=== PATIENT | female | born 1990 | race Two or more races ===

== ENCOUNTER 2025-02-07 19:33 | Emergency (ER) | payer OTHER, SELFPAY ==
--- NOTE | 2025-02-07 19:43 | ED.GENADULT ---
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 changing about 3-4 pads a day Related Data Previous Rx's ?Medication ?Instructions ?Recorded cefuroxime axetil 250 mg tablet 250 mg PO BID 7 days #14 tabs 02/07/25 desogestrel 0.15 mg-ethinyl 1 tab PO DAILY #84 tabs 02/07/25 estradiol 0.03 mg tablet (Apri) Allergies Allergy/AdvReac Type Severity Reaction Status Date / Time Crustaceans Allergy Unknown UNKNOWN Uncoded 02/07/25 19:46 shrimp Allergy Unknown rash Uncoded 02/07/25 19:46 Review of Systems Review of Systems: Yes all other systems are reviewed and are negative PMFSH Social History Social History Smoked in Last 30 Days: Yes Use of substances other than those prescribed or required for medical reasons: No Advance Directives: No Advance Directives Information Provided: No Physical Exam ED Vital Signs: BMI result Body Mass Index 30.9 Appearance: Alert. Oriented X3. No acute distress. Eyes: no pallor or icterus ENT: Pharynx normal Oral Mucosa moist tympanic membrane intact no erythema, Neck: Normal inspection. Neck supple. CVS: Normal heart rate and rhythm. Pulses normal. Respiratory: No respiratory distress. Equal air entry bilateral, no wheezing/rales/rhonchi Abd: soft, not tender no CVA tenderness Skin: Skin warm and dry. Normal skin color. Normal skin turgor. Extremities: No lower extremity edema, no calf tenderness Neuro: Oriented X 3. Course Course Course Narrative: RME, this is a rapid medical exam performed by Judson Beckman please refer to primary provider for complete H&P- 34 year old female presents for evaluation of abnormal menstrual bleeding. She reports she has had her menstrual cycle for 9 days straight with blood clots which is very unusual for her. She denies any pelvic pain. She denies any recent stressors or contraception. Plan for labs. Medications Administered Discontinued Medications Generic Name Dose Route Start Last Admin Trade Name Freq PRN Reason Stop Dose Admin Cefuroxime Axetil 500 mg 02/07/25 22:39 02/07/25 22:48 Cefuroxime Axetil 500 Mg Tablet PO 02/07/25 22:40 500 mg ONCE ONE Administration Medical Decision Making Medical Decision Making [facility] Narrative: Patient has dysfunctional uterine bleed no history of DVT or breast cancer patient is educated about risks for having breast cancer and DVTs will prescribe low-dose APRI Lab Data [facility] Lab Attestation statement: I reviewed the patient's lab results. 02/07/25 19:52 02/07/25 19:52 Labs: Lab Results 02/07/25 02/07/25 Range/Units 19:52 22:03 WBC 7.5 (4.8-10.8) X10*3/uL RBC 4.22 (4.20-5.50) X10*6/uL Hgb 13.5 (12.0-16.0) g/dl Hct 38.1 (37.0-47.0) % MCV 90.3 (80.0-98.0) fL MCH 32.0 (27.0-33.0) pg MCHC 35.4 H (31.0-35.0) g/dl RDW 13.4 (11.0-16.0) % Plt Count 264 (160-400) X10*3/uL MPV 8.9 L (9.4-12.3) fL Immature Gran % (Auto) 0.1 (0.0-0.4) % Neut % (Auto) 58.5 (45-73) % Lymph % (Auto) 30.4 (20-40) % [place] % (Auto) 8.7 (2-11) % Eos % (Auto) 1.9 (0-4) % Baso % (Auto) 0.4 (0-2) % Lymph # (Auto) 2.3 (1.2-4.9) X10*3/uL [place] # (Auto) 0.7 (0.1-1.2) X10*3/uL Eos # (Auto) 0.1 (0.0-0.4) X10*3/uL Baso # (Auto) 0.0 (0.0-0.2) X10*3/uL Abs Immat Gran (auto) 0.01 (0.00-0.03) X10*3/uL Absolute Neuts (auto) 4.4 (2.0-8.3) x10*3/uL Absolute Nucleated RBC 0.000 (0.0-0.012) X10*3/uL Nucleated RBC % (auto) 0.0 (0.0-0.2) /100WBC Sodium 141 (135-145) mmol/L Potassium 4.4 (3.3-5.1) mmol/L Chloride 106 (96-108) mmol/L Carbon Dioxide 25 (22-29) mmol/L Anion Gap 14 (12-20) BUN 9 (9-16) mg/dL Creatinine 0.97 (0.5-1.4) mg/dL Estim Creat Clear Calc 65.0 Estimated GFR > 60 Random Glucose 92 (60-115) mg/dL Calcium 9.2 (8.4-10.2) mg/dL Total Bilirubin 0.3 (0.0-1.0) mg/dL AST 30 (5-31) U/L ALT 25 (0-31) U/L Alkaline Phosphatase 76 (39-117) U/L Total Protein 7.9 (6.5-8.0) g/dL Albumin 4.4 (3.5-5.0) g/dL Beta HCG, Quant < 2 mIU/mL Urine Color RED Urine Appearance Cloudy Urine pH 5.0 (5.0-9.0) Ur Specific [place] 1.025 (1.005-1.025) Urine Protein 300 (3+) H (Neg-Trace) mg/dL Urine Glucose (UA) Negative (Negative) mg/dL Urine Ketones 15 (Negative) mg/dL Urine Blood Large (3+) H (Negative) Urine Nitrite Positive H (Negative) Ur Leukocyte Esterase Small (1+) H (Negative) Urine RBC >20 H (0-2) /HPF Urine WBC 21-50 H (0-5) /HPF Ur Squamous Epith Cells 0-2 (0-2) /HPF Urine Bacteria 4+ (None Seen) Hyaline Casts 0-2 (0-2) /LPF Discharge Plan Discharge Clinical Impression: Urinary tract infection, DUB (dysfunctional uterine bleeding) Patient Disposition: Home, Self-Care Instructions: Abnormal (Dysfunctional) Uterine Bleeding (ED), Urinary Tract Infection in Women (DC) Additional Instructions: Drink plenty of fluid Take control pills daily as prescribed and follow up with Gynecology Antibiotic as prescribed Prescriptions: New cefuroxime axetil 250 mg tablet 250 mg PO BID 7 Days Qty: 14 0RF desogestrel-ethinyl estradiol [Apri] 0.15-0.03 mg tablet 1 tab PO DAILY Qty: 84 0RF Referrals: Segun Herron MD [Physician, [employer] [facility]] Referral Note: DUB Interventions: ED Discharge Assessment Last Done: 02/07/25 22:50 Discharge Date/Time: 02/07/25 22:51 Print Language: Cymraes
[2025-02-07 19:46] VITALS: BP 120/71; PULSE 110; RESP 16; TEMP 37; O2SAT 98; BMI 30.9
[2025-02-07 19:55] LABS: MANUAL DIFF FLAG NO
[2025-02-07 19:56] LABS: Hematocrit 38.1 % (37.0-47.0); Hemoglobin 13.5 g/dl (12.0-16.0); Imm Gran Abs Auto 0.01 X10*3/uL (0.00-0.03); Imm Gran Pct Auto 0.1 % (0.0-0.4); Lymphocytes Absolute Auto 2.3 X10*3/uL (1.2-4.9); Mean Corpuscular HGB Conc 35.4 g/dl (31.0-35.0); Mean Corpuscular Hemoglobin 32.0 pg (27.0-33.0); Mean Corpuscular Volume 90.3 fL (80.0-98.0); NRBC Abs Auto 0.000 X10*3/uL (0.0-0.012); NRBC Pct Auto 0.0 /100WBC (0.0-0.2); Platelet Count 264 X10*3/uL (160-400); Red Blood Count 4.22 X10*6/uL (4.20-5.50); White Blood Count 7.5 X10*3/uL (4.8-10.8)
[2025-02-07 20:20] LABS: Alanine Aminotransferase 25 U/L (0-31); Albumin Level 4.4 g/dL (3.5-5.0); Alkaline Phosphatase 76 U/L (39-117); Anion Gap 14 (12-20); Aspartate Amino Transferase 30 U/L (5-31); Blood Urea Nitrogen 9 mg/dL (9-16); Calcium 9.2 mg/dL (8.4-10.2); Carbon Dioxide 25 mmol/L (22-29); Chloride 106 mmol/L (96-108); Creatinine Clr Calc Pharmacy 65.0; Estimated Glomerular Filt Rate > 60; Potassium 4.4 mmol/L (3.3-5.1); Sodium 141 mmol/L (135-145); Total Protein 7.9 g/dL (6.5-8.0)
[2025-02-07 21:40] VITALS: BP 101/61; PULSE 85; RESP 20; TEMP 36.9; O2SAT 96
[2025-02-07 22:15] LABS: Appearance Urine Cloudy; Glucose Urine UA Negative (Negative); PH 5.0 (5.0-9.0); Specific Gravity - Urine 1.025 (1.005-1.025); UMIC TRIGGER UACC YES
[2025-02-07 22:25] LABS: UACC Culture Trigger YES
[2025-02-07 22:50] VITALS: BP 101/61; PULSE 85; RESP 20; TEMP 36.9; O2SAT 96
== END 2025-02-07 22:51 | disposition home or self-care (01) ==
PROVIDERS: Physician Assistant; Emergency Provider Internal Medicine
DX: N93.8 Other specified abnormal uterine and vaginal bleeding (principal); N39.0 Urinary tract infection, site not specified
CPT/HCPCS: 36415; 80053; 81001; 84702; 85025; 87086; 99283; 99284

== ENCOUNTER 2025-03-16 15:33 | Emergency (ER) | payer OTHER, SELFPAY ==
[2025-03-16 15:59] VITALS: BP 151/65; PULSE 85; RESP 18; TEMP 36.6; O2SAT 97; BMI 31.0
--- NOTE | 2025-03-16 16:01 | ED.GENADULT ---
HPI - General Adult General Chief complaint: Abdominal Pain Stated complaint: uterine discomfort Time Seen by Provider: 03/16/25 18:11 Source: patient and old records reviewed Mode of arrival: ambulatory Limitations: no limitations History of Present Illness ED Provider: ANIL BRAVO narrative: 34 yo female seen here in January for AUB has OCPs but does not take them. She comes in c/o 1 day of urination bothering her then feeling like she has to urinate but not much comes out. She notes she had a different period this month so she took one dose of the OCP but nothing else. She denies STI or concerns. She denies n/v/d, abd pain or back pain. MD complaint: urinary symptoms Onset (ago): day(s) (1) Location: pelvis Radiation: non-radiation Severity: mild Quality: dull Pain Consistency: intermittent Relieving factors: none Exacerbating factors: other (urination) Associated symptoms: denies other symptoms Treatments prior to arrival: none Related Data Previous Rx's ?Medication ?Instructions ?Recorded cefuroxime axetil 250 mg tablet 250 mg PO BID 7 days #14 tabs 02/07/25 desogestrel 0.15 mg-ethinyl 1 tab PO DAILY #84 tabs 02/07/25 estradiol 0.03 mg tablet (Apri) nitrofurantoin 100 mg PO Q12H 5 days #10 caps 03/16/25 monohydrate/macrocrystals 100 mg capsule (Macrobid) Allergies Allergy/AdvReac Type Severity Reaction Status Date / Time Crustaceans Allergy Unknown UNKNOWN Uncoded 03/16/25 16:02 shrimp Allergy Unknown rash Uncoded 03/16/25 16:02 Review of Systems Review of Systems: Constitutional : No Fever, No Chills, No Fatigue ENT/Mouth : No sore throat, No Rhinorrhea Eyes: No Eye Pain, No Swelling, No Redness Cardiovascular : No Chest Pain, No SOB, No Dyspnea on Exertion Respiratory : No Cough, No Sputum Gastrointestinal : No Nausea, No Vomiting, No Diarrhea, No abdominal Pain Genitourinary : pos Dysuria, pos Urinary Frequency, No Hematuria, Musculoskeletal : No joint pain, No Myalgias, No Joint Swelling Skin : No Skin Lesions, No rash Neuro : No Weakness, No Numbness, No Dizziness, no Headache All other systems reviewed and are negative REPLACED BY [facility] Past Medical History Attestation statement: The following information was validated with the patient. Source: old records reviewed Social History Social History (Updated 03/16/25 @ 18:35 by Carrie Dallas DO) Patient Tobacco Use Status: Tobacco use Unknown Physical Exam ED Vital Signs: Vital Signs - 24 hr 03/16/25 15:59 Temperature 97.9 F Pulse Rate 85 Respiratory Rate 18 Blood Pressure 151/65 H Pulse Oximetry 97 Oxygen Delivery Method Room Air BMI result Body Mass Index 31.0 Appearance: Alert. Oriented X3. No acute distress. Eyes: Pupils equal, round and reactive to light. ENT: Pharynx normal. Neck: Normal inspection. CVS: Pulses normal. Respiratory: No respiratory distress. Abdomen: Soft and nontender. actively eating a sandwhich and czech fries Skin: Skin warm and dry. Normal skin color. Extremities: No lower extremity edema. Neuro: Oriented X 3. No motor deficit. No sensory deficit. Course Course Course Narrative: This is a rapid medical exam performed by Harjeet Avalos NP: Additional HPI, ROS, PE not included below will be deferred to primary provider. Patient is a 34y/o F presenting with complaint of lower abdominal pain, dysuria, and vaginal bleeding with clots. States she already had her period, this bleeding is abnormal. Plan:labs, UA Medical Decision Making Medical Decision Making [facility] Narrative: 34 yo femal here with dysuria, frequency and discomfort when urinating. No fevers, no n/v, no back pain. She looks well and is eating a large meal on stretcher. She needs US likely but declines in ED will refer to PCP as she does not want pelvic US here - she is aware and states she will return if anything worsens. She denies STI risk. Differential Diagnosis Differential Diagnoses: The differential diagnosis associated with the presentation includes UTI, yeast infection Admission/Observation Consideration of admission/observation: Escalation of care including admission/observation considered labs reassuring, not toxic eating food does not want to wait for US plans to call PCP a Lab Data [facility] Lab Attestation statement: I reviewed the patient's lab results. 03/16/25 16:24 03/16/25 16:24 Labs: Lab Results 03/16/25 Range/Units 16:24 WBC 7.8 (4.8-10.8) X10*3/uL RBC 4.11 L (4.20-5.50) X10*6/uL Hgb 13.4 (12.0-16.0) g/dl Hct 37.9 (37.0-47.0) % MCV 92.2 (80.0-98.0) fL MCH 32.6 (27.0-33.0) pg MCHC 35.4 H (31.0-35.0) g/dl RDW 13.2 (11.0-16.0) % Plt Count 247 (160-400) X10*3/uL MPV 8.8 L (9.4-12.3) fL Immature Gran % (Auto) 0.1 (0.0-0.4) % Neut % (Auto) 65.6 (45-73) % Lymph % (Auto) 24.4 (20-40) % [place] % (Auto) 7.3 (2-11) % Eos % (Auto) 2.3 (0-4) % Baso % (Auto) 0.3 (0-2) % Lymph # (Auto) 1.9 (1.2-4.9) X10*3/uL [place] # (Auto) 0.6 (0.1-1.2) X10*3/uL Eos # (Auto) 0.2 (0.0-0.4) X10*3/uL Baso # (Auto) 0.0 (0.0-0.2) X10*3/uL Abs Immat Gran (auto) 0.01 (0.00-0.03) X10*3/uL Absolute Neuts (auto) 5.1 (2.0-8.3) x10*3/uL Absolute Nucleated RBC 0.000 (0.0-0.012) X10*3/uL Nucleated RBC % (auto) 0.0 (0.0-0.2) /100WBC Sodium 143 (135-145) mmol/L Potassium 4.0 (3.3-5.1) mmol/L Chloride 108 (96-108) mmol/L Carbon Dioxide 26 (22-29) mmol/L Anion Gap 13 (12-20) BUN 12 (9-16) mg/dL Creatinine 0.98 (0.5-1.4) mg/dL Estim Creat Clear Calc 67.3 Estimated GFR > 60 Random Glucose 85 (60-115) mg/dL Calcium 9.3 (8.4-10.2) mg/dL Total Bilirubin 0.2 (0.0-1.0) mg/dL AST 30 (5-31) U/L ALT 27 (0-31) U/L Alkaline Phosphatase 70 (39-117) U/L Total Protein 8.0 (6.5-8.0) g/dL Albumin 4.5 (3.5-5.0) g/dL Beta HCG, Quant < 2 mIU/mL Urine Color Yellow Urine Appearance Clear Urine pH 5.5 (5.0-9.0) Ur Specific [place] 1.025 (1.005-1.025) Urine Protein Negative (Neg-Trace) mg/dL Urine Glucose (UA) Negative (Negative) mg/dL Urine Ketones Trace (Negative) mg/dL Urine Blood Negative (Negative) Urine Nitrite Negative (Negative) Ur Leukocyte Esterase Trace H (Negative) Urine RBC 0-2 (0-2) /HPF Urine WBC 0-5 (0-5) /HPF Ur Squamous Epith Cells 6-10 (0-2) /HPF Urine Bacteria 3+ (None Seen) Hyaline Casts 0-2 (0-2) /LPF Independent Historian Clinical information obtained from an independent historian. History obtained from or confirmed by: Friend External Record Review External record reviewed: Outpatient record Prescription Management I considered prescription management with: Antibiotic Discharge Plan Discharge Clinical Impression: Cystitis Patient Disposition: Home, Self-Care Instructions: Pelvic Pain in Women (ED) Additional Instructions: your labs are reassuring control should be consistent not a one time dose here and there please follow up with your doctor and ask for an ultrasound of ovaries,uterus return for any worsening symptoms or concerns. Prescriptions: New nitrofurantoin monohyd/m-cryst [Macrobid] 100 mg capsule 100 mg PO Q12H 5 Days Qty: 10 0RF Rx Instructions: must administer with a meal/food No Action cefuroxime axetil 250 mg tablet 250 mg PO BID 7 Days Qty: 14 0RF desogestrel-ethinyl estradiol [Apri] 0.15-0.03 mg tablet 1 tab PO DAILY Qty: 84 0RF Print Language: Senegalese
[2025-03-16 16:30] LABS: MANUAL DIFF FLAG NO
[2025-03-16 16:31] LABS: Appearance Urine Clear; Glucose Urine UA Negative (Negative); Hematocrit 37.9 % (37.0-47.0); Hemoglobin 13.4 g/dl (12.0-16.0); Imm Gran Abs Auto 0.01 X10*3/uL (0.00-0.03); Imm Gran Pct Auto 0.1 % (0.0-0.4); Lymphocytes Absolute Auto 1.9 X10*3/uL (1.2-4.9); Mean Corpuscular HGB Conc 35.4 g/dl (31.0-35.0); Mean Corpuscular Hemoglobin 32.6 pg (27.0-33.0); Mean Corpuscular Volume 92.2 fL (80.0-98.0); NRBC Abs Auto 0.000 X10*3/uL (0.0-0.012); NRBC Pct Auto 0.0 /100WBC (0.0-0.2); PH 5.5 (5.0-9.0); Platelet Count 247 X10*3/uL (160-400); Red Blood Count 4.11 X10*6/uL (4.20-5.50); Specific Gravity - Urine 1.025 (1.005-1.025); UMIC TRIGGER UACC YES; White Blood Count 7.8 X10*3/uL (4.8-10.8)
[2025-03-16 16:56] LABS: Alanine Aminotransferase 27 U/L (0-31); Albumin Level 4.5 g/dL (3.5-5.0); Alkaline Phosphatase 70 U/L (39-117); Anion Gap 13 (12-20); Aspartate Amino Transferase 30 U/L (5-31); Blood Urea Nitrogen 12 mg/dL (9-16); Calcium 9.3 mg/dL (8.4-10.2); Carbon Dioxide 26 mmol/L (22-29); Chloride 108 mmol/L (96-108); Creatinine Clr Calc Pharmacy 67.3; Estimated Glomerular Filt Rate > 60; Potassium 4.0 mmol/L (3.3-5.1); Sodium 143 mmol/L (135-145); Total Protein 8.0 g/dL (6.5-8.0)
--- NOTE | 2025-03-16 18:18 | PC.NURSE ---
Went to introduce self to pt, pt sitting on stretcher eating [place] fries, appears in nad, awaiting provider for eval
== END 2025-03-16 18:40 | disposition home or self-care (01) ==
PROVIDERS: Registered Nurse Emergency; Emergency Provider Emergency Medicine
DX: N30.90 Cystitis, unspecified without hematuria (principal)
CPT/HCPCS: 36415; 80053; 81001; 84702; 85025; 99282; 99283

== ENCOUNTER 2025-03-20 01:02 | Emergency (ER) | payer OTHER, SELFPAY ==
--- NOTE | ~2025-03-20 | XR_ITS ---
CLINICAL HISTORY: pain --- Additional Notes or Special Instructions: ? foreign body in vagina 1 view pelvis Comparison: None provided Findings: No acute fracture or dislocation. No significant degenerative changes. No radiopaque foreign body identified. IMPRESSION: 1. No acute findings. No radiopaque foreign body identified. This document has been electronically signed by: Александр Rodriguez MD on 03/20/2025 01:53:41
[2025-03-20 01:12] VITALS: BP 155/69; PULSE 56; RESP 20; TEMP 36.4; O2SAT 99; BMI 30.7
--- NOTE | 2025-03-20 01:17 | ED.GENADULT ---
HPI - General Adult General Chief complaint: General Medical Stated complaint: Urogen Female Time Seen by Provider: 03/20/25 03:10 Source: patient, RN notes reviewed and old records reviewed Mode of arrival: ambulatory Limitations: no limitations History of Present Illness ED Provider: Dr. Dana Delatorre HPI narrative: Previously healthy 34-year-old female presenting with question of a vaginal foreign body. States that she was using ?a sex toy? when she may have fallen asleep. Afterwards, she can not recall if she found the toy or if ?it might still be inside of me?. The toilet is made out of metal and is a solid piece. There is no small parts to have lost in the vagina. Of note, she was recently diagnosed with a urinary tract infection and started on Macrobid which she has been taking as prescribed for the last 2 days. No reported fever. She does admit to some suprapubic abdominal pain but this has been unchanged for the last 2 days. No vaginal discharge. No bowel changes. Related Data Previous Rx's ?Medication ?Instructions ?Recorded cefuroxime axetil 250 mg tablet 250 mg PO BID 7 days #14 tabs 02/07/25 desogestrel 0.15 mg-ethinyl 1 tab PO DAILY #84 tabs 02/07/25 estradiol 0.03 mg tablet (Apri) nitrofurantoin 100 mg PO Q12H 5 days #10 caps 03/16/25 monohydrate/macrocrystals 100 mg capsule (Macrobid) Allergies Allergy/AdvReac Type Severity Reaction Status Date / Time Crustaceans Allergy Unknown UNKNOWN Uncoded 03/20/25 01:25 shrimp Allergy Unknown rash Uncoded 03/20/25 01:25 Review of Systems Review of Systems: As per HPI, full review of systems performed and negative but for the above mentioned pertinent positives and negatives. [facility] Social History Social History Patient Tobacco Use Status: Tobacco use Unknown Advance Directives: No Advance Directives Information Provided: Yes Do you have a plan to hurt others: No Plan Physical Exam ED Exam Exam: GENERAL: Well-Appearing, conversant, no acute distress. SKIN: Normal skin color for ethnicity, warm, dry, no rashes noted. HEENT: Normocephalic, atraumatic, no stridor, posterior oropharynx nonerythematous, dentition intact, EOMI. NECK: Soft, supple, full ROM, midline structures nontender, no step-offs, no deformities, no lymphadenopathy. CHEST: Heart regular rate and rhythm, no murmurs, symmetric chest rise and fall. PULMONARY: Clear to auscultation bilaterally, no labored breathing, no wheezes/rhales/rhonchi. ABDOMINAL: Soft, nondistended, nontender, positive bowel sounds in all quadrants. : Deferred. MUSCULOSKELETAL: Normal tone, full range of motion, no deformities, no peripheral edema. NEURO: Alert and oriented x3, CN II through XII intact, equal strength and sensation bilateral upper and lower extremities, no focal neurologic deficits. PSYCHIATRIC: Normal affect, fluid speech, good eye contact and appropriate demeanor. Vital Signs: Vital Signs - 24 hr 03/20/25 01:12 Temperature 97.6 F Pulse Rate 56 Respiratory Rate 20 Blood Pressure 155/69 H Pulse Oximetry 99 Oxygen Delivery Method Room Air BMI result Body Mass Index 30.7 Course Course Course Narrative: RME, this is a rapid medical exam performed by Judson Beckman please refer to primary provider for complete H&P- 34 year old female presents for evaluation of a foreign body in her vagina. She reports she thinks that a piece of a vibrator is stuck in her vagina. Plan for x-ray Medical Decision Making Medical Decision Making MDM Narrative: 34-year-old female presenting with a potential foreign body in the vagina. Differential diagnosis includes retained foreign body, UTI, suprapubic pain, STDs, among others. X-ray does not show evidence of radiopaque foreign body. She is refusing vaginal exam at this time. We had an extensive discussion regarding vaginal anatomy and the possibility of anything ?going high up into her abdomen?. She has been reassured. Using shared decision making, plan for discharge home to follow-up with primary care and/or specialist. Patient understands and agrees with plan for discharge. Discharged home in stable condition. Differential Diagnosis Differential Diagnoses: The differential diagnosis associated with the presentation includes (as above) Admission/Observation Consideration of admission/observation: Escalation of care including admission/observation considered Independent Historian Clinical information obtained from an independent historian. History obtained from or confirmed by: Spouse Discharge Plan Discharge Clinical Impression: Encounter for medical screening examination, Vaginal foreign body Patient Disposition: Home, Self-Care Instructions: Vaginal Foreign Body (ED) Additional Instructions: Continue to take your antibiotic as prescribed. Do not stop this medication early if you start to feel better. With the ER with any new or worsening symptoms including: Fevers, worsening pain in your vagina or abdomen, any new symptom that concerns you. Call 911 with any medical emergency. Prescriptions: No Action cefuroxime axetil 250 mg tablet 250 mg PO BID 7 Days Qty: 14 0RF desogestrel-ethinyl estradiol [Apri] 0.15-0.03 mg tablet 1 tab PO DAILY Qty: 84 0RF nitrofurantoin monohyd/m-cryst [Macrobid] 100 mg capsule 100 mg PO Q12H 5 Days Qty: 10 0RF Rx Instructions: must administer with a meal/food Print Language: Khmer
[2025-03-20 03:09] VITALS: BP 105/64; PULSE 82; RESP 20; TEMP 36.6; O2SAT 97
[2025-03-20 04:07] VITALS: BP 105/64; PULSE 82; RESP 20; TEMP 36.6; O2SAT 97
== END 2025-03-20 04:08 | disposition home or self-care (01) ==
PROVIDERS: Emergency Provider Emergency Medicine; PCP Internal Medicine
DX: T19.2XXA Foreign body in vulva and vagina, initial encounter (principal); W44.B3XA Plastic toy and toy part entering into or through a natural orifice, initial encounter; R10.2 Pelvic and perineal pain
CPT/HCPCS: 72170; 99283

== ENCOUNTER → 2025-03-20 01:18 | Outpatient (BNV) | payer OTHER, SELFPAY | PROVIDERS: Visit Provider Radiology Diagnostic Radiology | DX: R10.2 Pelvic and perineal pain (principal) | CPT/HCPCS: 72170 ==

== ENCOUNTER 2025-03-26 10:00 | Outpatient (REF) | payer OTHER, SELFPAY ==
[2025-03-26 11:14] LABS: Hematocrit 38.9 % (37.0-47.0); Hemoglobin 13.5 g/dl (12.0-16.0); Mean Corpuscular HGB Conc 34.7 g/dl (31.0-35.0); Mean Corpuscular Hemoglobin 32.1 pg (27.0-33.0); Mean Corpuscular Volume 92.4 fL (80.0-98.0); NRBC Abs Auto 0.000 X10*3/uL (0.0-0.012); NRBC Pct Auto 0.0 /100WBC (0.0-0.2); Platelet Count 243 X10*3/uL (160-400); Red Blood Count 4.21 X10*6/uL (4.20-5.50); White Blood Count 7.5 X10*3/uL (4.8-10.8)
== END 2025-03-26 10:01 | disposition home or self-care (01) ==
LOC: HO.LAB 10:00
PROVIDERS: PCP Internal Medicine; Visit Provider Obstetrics & Gynecology
DX: N93.9 Abnormal uterine and vaginal bleeding, unspecified (principal)
CPT/HCPCS: 36415; 84443; 84702; 85027; 99202

== ENCOUNTER 2025-03-26 10:00 | Outpatient (AMB) | payer OTHER, SELFPAY ==
--- NOTE | 2025-03-26 10:03 | A.OFFVIS_ITS ---
Vital Signs 03/26/25 10:15 Height 4 ft 11 in Weight 153 lb BMI 30.9 BP 108/70 Intake Visit Reasons: ER follow up Systems Analyst Engineer: Systems Analyst Engineer Present (Briana) Accompanied by: Self / Same As Patient Allergies Crustaceans Allergy (Unknown, Uncoded 03/20/25 01:25) UNKNOWN shrimp Allergy (Unknown, Uncoded 03/20/25 01:25) rash Is last menstrual period known: Yes Last menstrual period: 02/20/25 Post menopausal: No Patient : No HPI Comments Details: Presenting complaining of irregular menstrual cycles over the last few months Last co testing was many years ago [facility] Social History Patient Tobacco Use Status: Tobacco use Unknown Female Reproductive History Menstrual Age of Menarche: 9 Date of last menstrual period: 02/20/25 control method: none Review of Systems Const All systems reviewed & are unremarkable except as noted in HPI and below Card Reports as per HPI Resp Reports as per HPI GI Reports as per HPI and Reports no additional complaints Reports as per HPI Physical Exam Vital Signs: BMI result Body Mass Index 30.9 Const General: cooperative, healthy appearing and comfortable Chest Chest palpation & inspection: normal inspection of the chest and normal palpation of entire chest wall Breast/axilla inspection: normal inspection of the breasts and normal inspection of the axillae Breast/axilla palpation: normal palpation of the breasts, normal palpation of the axillae and no axillary lymphadenopathy Resp Effort & Inspection: normal respiratory effort Auscultation: clear to auscultation bilaterally Percussion: percussion normal Cardio Palpation: normal PMI Rate: regular rate Rhythm: regular rhythm Heart sounds: no murmurs and no rubs Peripheral pulses: Peripheral pulses 2+ throughout GI Inspection: Yes normal to inspection Palpation (GI): Soft to palpation, nontender, no guarding, not rigid and No hepatosplenomegaly present Percussion: Yes normal to percussion Auscultation: normal bowel sounds Rectal Exam - Female: deferred General: Yes bladder normal to palpation External Female Exam: No lesion Speculum Exam - Vagina: normal appearance of the vagina, normal palpation, normal vaginal discharge and not erythematous Speculum Exam - Cervix: normal appearance of the cervix and normal palpation Bimanual exam- vagina & uterus: normal bimanual exam, normal palpation, uterine size normal, bladder normal to palpation, consistency normal and normal pal pation Bimanual Exam- Adnexa, other: normal adnexae, no masses and no tenderness Assessment & Plan Assessment & Plan (1) Abnormal uterine bleeding (AUB): Code(s): N93.9 - Abnormal uterine and vaginal bleeding, unspecified Category: Medical Plan: Co testing done, GC and chlamydia taken CBC, TSH, HCG, and pelvic ultrasound ordered. Discussed with the patient the different causes of abnormal bleeding including thyroid disorders, uterine and ovarian pathology, endometrial hyperplasia, carcinoma and other potential causes. Discussed with the patient the work up including CBC (to r/o anemia), TSH, pelvic Ultrasound, endometrial biopsy to r/o endometrial pathology. All questions answered and the patient verbalized understanding. Instructed the patient to schedule an appointment for an endometrial biopsy in 2 weeks. Orders: Orders TSH reflex Free T4 Today N93.9 - Abnormal uterine and vaginal bleeding, unspecified HCG Quantitative Today N93.9 - Abnormal uterine and vaginal bleeding, unspecified US pelvic and transvaginal Today N93.9 - Abnormal uterine and vaginal bleeding, unspecified Complete Blood Count no Diff Today N93.9 - Abnormal uterine and vaginal bleeding, unspecified Medications: Discontinued cefuroxime axetil Discontinued Reason: Patient Completed Course 250 mg PO BID 7 days 14 tabs 0RF desogestrel-ethinyl estradiol 0.15-0.03 mg (Apri) Discontinued Reason: Patient Completed Course 1 tab PO DAILY 84 tabs 0RF nitrofurantoin monohyd/m-cryst 100 mg (Macrobid) must administer with a meal/food Discontinued Reason: Patient Completed Course 100 mg PO Q12H 5 days 10 caps 0RF Coding Level of Care Code New Pt Level 3 (18785) Diagnoses Abnormal uterine bleeding (AUB) N93.9
[2025-03-26 10:15] VITALS: BP 108/70; BMI 30.9
== END 2025-03-26 10:36 | disposition home or self-care (01) ==
LOC: HO.HWS 10:00
PROVIDERS: PCP Internal Medicine; Visit Provider Obstetrics & Gynecology
DX: N93.9 Abnormal uterine and vaginal bleeding, unspecified (principal)
CPT/HCPCS: 99203

== ENCOUNTER 2025-03-26 11:24 | Outpatient (REF) | payer OTHER, SELFPAY ==
[2025-03-26 21:15] LABS: CT PCR NOT DETECTED (Not Detect.); NG PCR NOT DETECTED (Not Detect.)
== END 2025-03-26 11:25 | disposition home or self-care (01) ==
LOC: HO.LNP 11:24
PROVIDERS: Visit Provider Obstetrics & Gynecology
DX: N93.9 Abnormal uterine and vaginal bleeding, unspecified (principal); Z11.51 Encounter for screening for human papillomavirus (HPV); Z11.3 Encounter for screening for infections with a predominantly sexual mode of transmission; Z11.8 Encounter for screening for other infectious and parasitic diseases
CPT/HCPCS: 87491; 87591; 87626; 88175

== ENCOUNTER 2025-04-11 12:33 | Outpatient (REF) | payer OTHER, SELFPAY ==
--- NOTE | ~2025-04-11 | US_ITS ---
EXAMINATION: US PELVIS TRANSABDOMINAL AND TRANSVAGINAL HISTORY: N93.9 - Abnormal uterine and vaginal bleeding, unspecified COMPARISON: There are no prior studies available for comparison. TECHNIQUE: Transabdominal real-time 2D roque-scale ultrasound was performed. The patient declined endovaginal examination. FINDINGS: Uterus: The uterus is normal in size, measuring 8.8 x 3.4 x 4.6 cm. Myometrium has a normal echotexture. No fibroids are identified. Endometrium: The endometrial stripe measures 2 mm in thickness. Right ovary: The right ovary measures 2.9 x 1.6 x 1.9 cm. The right ovary is normal in size and echotexture. Left ovary: The left ovary measures 2.2 x 1.6 x 2.1 cm. The left ovary is normal in size and echotexture. Pelvic fluid: none. US/US pelvic and transvaginal IMPRESSION: Unremarkable pelvic ultrasound. Electronically signed by: Leroy Harris MD 04/11/2025 03:44 PM EDT
== END 2025-04-11 12:34 | disposition home or self-care (01) ==
LOC: HO.US 12:33
PROVIDERS: PCP Internal Medicine; Visit Provider Obstetrics & Gynecology
DX: N93.9 Abnormal uterine and vaginal bleeding, unspecified (principal)
CPT/HCPCS: 76830; 76856

== ENCOUNTER → 2025-04-11 12:38 | Outpatient (BNV) | payer OTHER, SELFPAY | PROVIDERS: PCP Internal Medicine; Visit Provider Radiology Diagnostic Radiology | DX: N93.9 Abnormal uterine and vaginal bleeding, unspecified (principal) | CPT/HCPCS: 76830; 76856 ==

== ENCOUNTER 2025-04-16 10:21 | Outpatient (AMB) | payer OTHER, SELFPAY ==
[2025-04-16 10:25] VITALS: BMI 30.9
--- NOTE | 2025-04-16 10:25 | A.OFFVIS_ITS ---
Vital Signs 04/16/25 10:25 Height 4 ft 11 in Weight 153 lb BMI 30.9 Intake Visit Reasons: ultrasound follow up Intake Note: here for u/s results Information Interpreted: non-clinical & clinical Accompanied by: Self / Same As Patient Allergies Crustaceans Allergy (Unknown, Uncoded 04/16/25 10:26) UNKNOWN shrimp Allergy (Unknown, Uncoded 04/16/25 10:26) rash Medication List - Last Reconciled 04/16/25 by Anna Hutson LPN No Known Home Meds Is last menstrual period known: Yes (lasted 4 days) Last menstrual period: 04/08/25 HPI Comments Details: Presenting for [facility] Social History Patient Tobacco Use Status: Tobacco use Unknown Female Reproductive History Menstrual Age of Menarche: 9 Date of last menstrual period: 04/08/25 Review of Systems Const All systems reviewed & are unremarkable except as noted in HPI and below Reports as per HPI and Reports no additional complaints GI Reports no additional complaints Reports no additional complaints Physical Exam Vital Signs: BMI result Body Mass Index 30.9 Office Procedures Endometrial Biopsy Details: The patient was counseled regarding the indication and benefits of endometrial sampling to rule out endometrial pathology including not limited to endometrial hyperplasia or endometrial cancer and others; The alternatives (Either do nothing vs. hysteroscopy D&C) & the risks were discussed with the patient including but not limited: pain, uterine perforation, bleeding, infection, possible injury to bladder, bowel, ureter, possible need for blood transfusion with all its possible risks. The patient verbalized understanding all questions answered and signed consent. Urine test done in the office was negative The patient was placed into the dorsal lithotomy position; a speculum was inserted in the vagina. Using aseptic technique for the procedure, the cervix was cleansed with Betadine. The anterior lip of the cervix was grasped with a single tooth tenaculum. The uterus was sounded to 7 cm with a 4 mm Pipelle was used. Tissues samples were obtained and placed in formalin, in a patient labeled container and sent to the pathology department. At the end of the procedure, there was minimal bleeding noted The patient tolerated the procedure well and was discharged in good condition with the following instructions: Nothing in the vagina until the bleeding stops. No sex until the bleeding stops, to call if any of the following occurs: fever (>100.4), flu-like symptoms, abdominal pain, heavy bleeding, four smelling vaginal discharge. The patient was instructed to schedule a Follow up appointment in 2 weeks to discuss pathology results of the biopsy and treatment options. This note was generated with a voice recognition program. Some errors may have been overlooked during the review of this note. Sometimes these errors may affect the content or meaning of a given sentence. [id number] Biopsy Assessment & Plan Assessment & Plan (1) Abnormal uterine bleeding (AUB): Code(s): N93.9 - Abnormal uterine and vaginal bleeding, unspecified Category: Medical Plan: EMB done, see procedure note Orders: Orders AMB Endometrial Biopsy Today N93.9 - Abnormal uterine and vaginal bleeding, unspecified Coding Level of Care Code Procedure Only Diagnoses Abnormal uterine bleeding (AUB) N93.9 CPT Codes Endometrial Biopsy - CPT: 52027-Lnoolaixalm Biopsy ([id number])
== END 2025-04-16 11:28 | disposition home or self-care (01) ==
LOC: HO.HWS 10:21
PROVIDERS: PCP Internal Medicine; Visit Provider Obstetrics & Gynecology
DX: N93.9 Abnormal uterine and vaginal bleeding, unspecified (principal); Z32.02 Encounter for pregnancy test, result negative
CPT/HCPCS: 58100

== ENCOUNTER 2025-04-16 10:21 | Outpatient (REF) | payer OTHER, SELFPAY | END 2025-04-16 10:22 | disposition home or self-care (01) | LOC: HO.LNP 10:21 | PROVIDERS: PCP Internal Medicine; Visit Provider Obstetrics & Gynecology | DX: N93.9 Abnormal uterine and vaginal bleeding, unspecified (principal); Z32.02 Encounter for pregnancy test, result negative | CPT/HCPCS: 58100; 81025; 88305 ==

== ENCOUNTER 2025-06-06 12:30 | Outpatient (REF) | payer OTHER, SELFPAY ==
--- NOTE | ~2025-06-06 | US_ITS ---
EXAMINATION: US PELVIS TRANSABDOMINAL AND TRANSVAGINAL HISTORY: N93.9 - Abnormal uterine and vaginal bleeding, unspecified COMPARISON: Comparison is made with the prior examination dated 04/11/2025. TECHNIQUE: Transabdominal and endovaginal real-time 2D roque-scale ultrasound was performed. FINDINGS: Uterus: The uterus is normal in size, measuring 8.3 x 4.3 x 5.0 cm. Myometrium has a normal echotexture. No fibroids are identified. Endometrium: The endometrial stripe measures 8 mm in thickness. There is trace fluid in the endometrial canal. Right ovary: The right ovary measures 2.9 x 1.6 x 1.5 cm. The right ovary is normal in size and echotexture. Left ovary: The left ovary measures 3.3 x 2.2 x 2.8 cm. The left ovary is normal in size and echotexture. Pelvic fluid: none. US/US pelvic and transvaginal IMPRESSION: Trace fluid in the endometrial canal. Otherwise unremarkable pelvic ultrasound. Electronically signed by: Leroy Harris MD 06/06/2025 01:26 PM [facility] [place]
== END 2025-06-06 12:31 | disposition home or self-care (01) ==
LOC: HO.US 12:30
PROVIDERS: PCP Internal Medicine; Visit Provider Obstetrics & Gynecology
DX: N93.9 Abnormal uterine and vaginal bleeding, unspecified (principal)
CPT/HCPCS: 76830; 76856

== ENCOUNTER → 2025-06-06 12:35 | Outpatient (BNV) | payer OTHER, SELFPAY | PROVIDERS: PCP Internal Medicine; Visit Provider Radiology Diagnostic Radiology | DX: N93.9 Abnormal uterine and vaginal bleeding, unspecified (principal) | CPT/HCPCS: 76830; 76856 ==

== ENCOUNTER 2025-07-09 11:14 | Outpatient (AMB) | payer OTHER, SELFPAY ==
--- NOTE | 2025-07-09 12:02 | A.OFFVIS_ITS ---
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 The following workup was done.: H&H= 13.5/38.9 TSH, hCG, GC and chlamydia were negative. Endometrial biopsy pathology showed the following: Proliferative endometrium; negative for atypia, hyperplasia or malignancy Co testing was done was negative. Pelvic ultrasound showed the following: IMPRESSION: Trace fluid in the endometrial canal. Otherwise unremarkable pelvic ultrasound [facility] Social History Patient Tobacco Use Status: Tobacco use Unknown Female Reproductive History Menstrual Age of Menarche: 9 Review of Systems Const All systems reviewed & are unremarkable except as noted in HPI and below Reports as per HPI and Reports no additional complaints GI Reports no additional complaints Reports no additional complaints Telehealth Telehealth Telehealth Platform: [employer] Location of provider rendering services: practice address Location of patient: address on file Patient Identification confirmed using: Name, : Yes Telehealth method: video Patient verbally consented to treatment: Yes Patient verbally consented to billing insurance company: Yes Patient informed of any privacy concerns related to visit: Yes Minutes spent on Phone/Video with Pt.: 4 Assessment & Plan Assessment & Plan (1) Abnormal uterine bleeding (AUB): Code(s): N93.9 - Abnormal uterine and vaginal bleeding, unspecified Category: Medical Plan: Discussed with the patient the results of the work up done and options of treatment including treatment, expectant management, BCP's, Mirena IUD. All pros, cons, risks and benefits if each option was discussed with the patient and the patient decided to think about it and get back to us. All questions answered the patient verbalized understanding. I spent a total of 20 minutes reviewing the chart, talking to the patient via video and documenting in the medical record. Coding Level of Care Code Tele Est Pt Level 3 (76646) Diagnoses Abnormal uterine bleeding (AUB) N93.9
== END 2025-07-09 14:28 | disposition home or self-care (01) ==
LOC: HO.HWS 11:14
PROVIDERS: PCP Internal Medicine; Visit Provider Obstetrics & Gynecology
DX: N93.9 Abnormal uterine and vaginal bleeding, unspecified (principal)
CPT/HCPCS: 99213